=== PATIENT | female | born 1960 | race Caucasian/White ===

== ENCOUNTER → 2023-11-04 17:13 | Outpatient (REF) | payer BC, SELFPAY | LOC: WDC 17:13 | PROVIDERS: ATTENDING PHYSICIAN Advanced Practice Midwife; FAMILY PHYSICIAN Nurse Practitioner Primary Care | DX: Z12.31 Encounter for screening mammogram for malignant neoplasm of breast (principal) | CPT/HCPCS: 77063; 77067 ==

== ENCOUNTER 2023-11-15 08:24 | Outpatient (RCR) | payer BC, SELFPAY ==
[2023-11-15] VITALS (11 sets, daily range): BP systolic 108–124; BP diastolic 57–71
[2023-11-15] MEDS: NSS 500 IV (09:00)
[2023-11-15] MEDS: TYLENOL 650 MG PO (09:09)
[2023-11-15] MEDS: SOLU-MEDROL PF 51.6000000000000014 MG IV (09:10)
[2023-11-15 09:33] LABS: % Basophils 0.4 % (0-2); % Eosinophils 2.9 % (0-6); % Immature Granulocytes 0.2 % (0-0.5); % Lymphocytes 29.5 % (20.5-51.1); % Monocytes 8.7 % (1.7-9.3); % Neutrophils 58.3 % (42.2-75.2); Absolute Eosinophils 0.1 10^3/uL (0-0.7); Absolute Lymphocytes 1.3 10^3/uL (1.2-3.4); Absolute Monocytes 0.4 10^3/uL (0.1-0.6); Absolute Neutrophils 2.6 10^3/uL (1.4-6.5); Hematocrit 34.5 % (37.0-47.0); Hemoglobin 11.8 g/dL (12.0-16.0); Mean Corp Hgb Conc. 34.2 g/dL (33.0-37.0); Mean Corpuscular Hgb 31.2 pg (27.0-31.0); Mean Corpuscular Volume 91.3 fL (81.0-99.0); Mean Platelet Volume 9.6 fL (7.4-10.4); Nucleated Red Blood Cells % 0 %; Platelet Count 270 10^3/uL (130-400); Red Blood Cell Count 3.78 10^6/uL (4.20-5.40); Red Cell Dist. Width 12.7 % (11.5-14.5); White Blood Cell Count 4.5 10^3/uL (4.8-10.8)
[2023-11-15] MEDS: BENADRYL 51 MG IV (09:37)
[2023-11-15] MEDS: OCREVUS 520 MG IV (10:00)
== END 2023-11-16 09:46 | disposition home or self-care (01) ==
LOC: OID 08:24
PROVIDERS: ATTENDING PHYSICIAN Psychiatry & Neurology Neurology; FAMILY PHYSICIAN Internal Medicine
DX: G35 Multiple sclerosis (principal)
CPT/HCPCS: 36415; 85025; 96361; 96367; 96413; 96415; J2350

== ENCOUNTER → 2023-11-19 06:32 | Day surgery (SDC) | payer BC, SELFPAY | LOC: GI 06:32 | PROVIDERS: ATTENDING PHYSICIAN Specialist; FAMILY PHYSICIAN Nurse Practitioner Primary Care | DX: K22.70 Barrett's esophagus without dysplasia (principal); K31.7 Polyp of stomach and duodenum; Z09 Encounter for follow-up examination after completed treatment for conditions other than malignant neoplasm | CPT/HCPCS: 43239; 88305 ==

== ENCOUNTER → 2023-12-27 10:57 | Outpatient (REF) | payer BC, SELFPAY ==
[2023-12-27 11:37] LABS: % Basophils 0.6 % (0-2); % Eosinophils 4.2 % (0-6); % Immature Granulocytes 0.2 % (0-0.5); % Lymphocytes 30.6 % (20.5-51.1); % Monocytes 8.8 % (1.7-9.3); % Neutrophils 55.6 % (42.2-75.2); Absolute Eosinophils 0.2 10^3/uL (0-0.7); Absolute Lymphocytes 1.5 10^3/uL (1.2-3.4); Absolute Monocytes 0.4 10^3/uL (0.1-0.6); Absolute Neutrophils 2.7 10^3/uL (1.4-6.5); Hematocrit 34.8 % (37.0-47.0); Hemoglobin 12.1 g/dL (12.0-16.0); Mean Corp Hgb Conc. 34.8 g/dL (33.0-37.0); Mean Corpuscular Hgb 31.5 pg (27.0-31.0); Mean Corpuscular Volume 90.6 fL (81.0-99.0); Mean Platelet Volume 9.6 fL (7.4-10.4); Nucleated Red Blood Cells % 0 %; Platelet Count 292 10^3/uL (130-400); Red Blood Cell Count 3.84 10^6/uL (4.20-5.40); Red Cell Dist. Width 12.7 % (11.5-14.5); White Blood Cell Count 4.8 10^3/uL (4.8-10.8)
[2023-12-27 12:08] LABS: ALT (SGPT) 16 U/L (0-35); AST (SGOT) 21 U/L (14-36); Albumin 4.4 g/dl (3.5-5.0); Alkaline Phosphatase 57 U/L (38-126); Blood Urea Nitrogen 17 mg/dl (7-17); Calcium 9.7 mg/dl (8.4-10.2); Carbon Dioxide 30 mmol/L (22-30); Chloride 99 mmol/L (98-107); Glucose 94 mg/dl (70-99); Potassium 4.2 mmol/L (3.5-5.1); Sodium 136 mmol/L (135-145); Total Bilirubin 0.5 mg/dl (0.2-1.3); Total Protein 6.8 g/dl (6.3-8.2); eGFR > 60.00
[2023-12-27 12:14] LABS: IgG 572 mg/dl (700-1600)
[2023-12-27 12:19] LABS: Vitamin D, 25-OH*** 109 ng/mL (30-80)
[2023-12-27 12:33] LABS: TSH Reflex To Free T4 1.12 uIU/ml (0.47-4.68)
[2023-12-27 12:52] LABS: Vitamin B12 350 pg/ml (239-931)
== END ==
LOC: REG 10:57
PROVIDERS: ATTENDING PHYSICIAN Psychiatry & Neurology Neurology
DX: G35 Multiple sclerosis (principal)
CPT/HCPCS: 36415; 80053; 82306; 82607; 82784; 84443; 85025

== ENCOUNTER → 2024-01-10 17:41 | Outpatient (REF) | payer BC, SELFPAY | LOC: MRI 3T 17:41 | PROVIDERS: ATTENDING PHYSICIAN Psychiatry & Neurology Neurology; FAMILY PHYSICIAN Nurse Practitioner Primary Care | DX: G35 Multiple sclerosis (principal) | CPT/HCPCS: 72157; A9575 ==

== ENCOUNTER → 2024-04-06 11:30 | Outpatient (REF) | payer BC, SELFPAY ==
[2024-04-06 13:04] LABS: ALT (SGPT) 22 U/L (0-35); AST (SGOT) 25 U/L (14-36); Albumin 4.5 g/dl (3.5-5.0); Alkaline Phosphatase 59 U/L (38-126); Blood Urea Nitrogen 15 mg/dl (7-17); Calcium 9.7 mg/dl (8.4-10.2); Carbon Dioxide 30 mmol/L (22-30); Chloride 102 mmol/L (98-107); Glucose 92 mg/dl (70-99); HDL Cholesterol 79 mg/dl; Iron 134 ug/dl (37-170); LDL Cholesterol, Calculated 178 mg/dl; Potassium 4.3 mmol/L (3.5-5.1); Sodium 137 mmol/L (135-145); Total Bilirubin 0.5 mg/dl (0.2-1.3); Total Cholesterol 271 mg/dl (50-199); Total Protein 6.7 g/dl (6.3-8.2); Triglyceride 74 mg/dl (10-149); Very Low Density Lipoprotein 14 mg/dl (0-30); eGFR > 60.00
[2024-04-06 13:13] LABS: Percent Saturation 36 % (20-50); Total Iron Binding Capacity 365 ug/dl (265-497)
[2024-04-06 13:19] LABS: Vitamin D, 25-OH*** 101 ng/mL (30-80)
[2024-04-06 13:32] LABS: TSH 0.23 uIU/ml (0.47-4.68)
[2024-04-06 13:35] LABS: IgG 597 mg/dl (700-1600)
[2024-04-06 13:36] LABS: Ferritin 31.7 ng/ml (11.1-264.0)
[2024-04-06 13:52] LABS: Vitamin B12 916 pg/ml (239-931)
[2024-04-06 14:04] LABS: CRP, Highly Sensitive < 0.34 mg/L
[2024-04-06 14:47] LABS: Rheumatoid Agglutinin Less Than 10 IU (<10 IU)
[2024-04-08 03:01] LABS: ANA, IgG Reflex to HEp-2 None Detected (None Detected)
== END ==
LOC: REG 11:30
PROVIDERS: ATTENDING PHYSICIAN Psychiatry & Neurology Neurology; FAMILY PHYSICIAN Nurse Practitioner Primary Care; OTHER PHYSICIAN Psychiatry & Neurology Neurology
DX: E78.2 Mixed hyperlipidemia (principal); M85.89 Other specified disorders of bone density and structure, multiple sites; E55.9 Vitamin D deficiency, unspecified; Z79.899 Other long term (current) drug therapy; M25.50 Pain in unspecified joint; E53.8 Deficiency of other specified B group vitamins; E03.8 Other specified hypothyroidism; G35 Multiple sclerosis
CPT/HCPCS: 36415; 80053; 80061; 82306; 82607; 82728; 82784; 83540; 83550; 83735; 84439; 84443; 86038; 86141; 86430

== ENCOUNTER → 2024-04-26 15:29 | Outpatient (REF) | payer BC, SELFPAY | LOC: MRI 3T 15:29 | PROVIDERS: ATTENDING PHYSICIAN Psychiatry & Neurology Neurology; FAMILY PHYSICIAN Nurse Practitioner Primary Care | DX: G35 Multiple sclerosis (principal) | CPT/HCPCS: 70551; 72141 ==

== ENCOUNTER 2024-05-03 08:22 | Outpatient (RCR) | payer BC, SELFPAY ==
[2024-05-03] VITALS (12 sets, daily range): BP systolic 97–125; BP diastolic 44–83
[2024-05-03 09:10] LABS: % Basophils 0.2 % (0-2); % Eosinophils 2.8 % (0-6); % Lymphocytes 23.1 % (20.5-51.1); % Monocytes 8.2 % (1.7-9.3); % Neutrophils 65.7 % (42.2-75.2); Absolute Eosinophils 0.1 10^3/uL (0-0.7); Absolute Lymphocytes 1.2 10^3/uL (1.2-3.4); Absolute Monocytes 0.4 10^3/uL (0.1-0.6); Absolute Neutrophils 3.3 10^3/uL (1.4-6.5); Hematocrit 36.1 % (37.0-47.0); Hemoglobin 12.2 g/dL (12.0-16.0); Mean Corp Hgb Conc. 33.8 g/dL (33.0-37.0); Mean Corpuscular Hgb 31.4 pg (27.0-31.0); Mean Corpuscular Volume 92.8 fL (81.0-99.0); Mean Platelet Volume 9.4 fL (7.4-10.4); Platelet Count 240 10^3/uL (130-400); Red Blood Cell Count 3.89 10^6/uL (4.20-5.40); Red Cell Dist. Width 12.6 % (11.5-14.5)
[2024-05-03] MEDS: NSS 500 IV (09:22)
[2024-05-03] MEDS: SOLU-MEDROL PF 51.6 MG IV (09:23)
[2024-05-03] MEDS: TYLENOL 650 MG PO (09:24)
[2024-05-03] MEDS: BENADRYL 51 MG IV (09:50)
[2024-05-03] MEDS: OCREVUS 520 MG IV (10:21)
== END 2024-05-13 23:59 | disposition home or self-care (01) ==
LOC: OID 08:22
PROVIDERS: ATTENDING PHYSICIAN Psychiatry & Neurology Neurology; FAMILY PHYSICIAN Internal Medicine; REFERRING PHYSICIAN Psychiatry & Neurology Neurology
DX: G35 Multiple sclerosis (principal)
CPT/HCPCS: 36415; 85025; 96361; 96367; 96413; 96415; J2350

== ENCOUNTER → 2024-06-08 09:31 | Outpatient (REF) | payer BC, SELFPAY ==
[2024-06-08 10:24] LABS: Urine Albumin Trace (Neg - Trace); Urine Bilirubin Negative (Negative); Urine Character Slightly Cloudy (Clear); Urine Color Straw; Urine Glucose Negative (Negative); Urine Ketone Negative (Negative); Urine Leukocyte 2+ (Negative); Urine Nitrite Positive (Negative); Urine Occult Blood 1+ (Negative); Urine Specific Gravity 1.015 (<1.030); Urine Urobilinogen Negative (Neg - 1+)
[2024-06-08 10:33] LABS: Urine Mucus Few
[2024-06-08 10:34] LABS: Urine Bacteria Many (Negative); Urine White Cell 50-60 /HPF (0-5)
== END ==
LOC: REG 09:31
PROVIDERS: ATTENDING PHYSICIAN Urology; FAMILY PHYSICIAN Nurse Practitioner Primary Care
DX: N31.9 Neuromuscular dysfunction of bladder, unspecified (principal); N39.0 Urinary tract infection, site not specified; R27.8 Other lack of coordination; R33.9 Retention of urine, unspecified
CPT/HCPCS: 81003; 81015; 87086; 87088; 87186

== ENCOUNTER → 2024-07-12 10:24 | Outpatient (REF) | payer BC, SELFPAY ==
[2024-07-12 12:04] LABS: HDL Cholesterol 97 mg/dl; LDL Cholesterol, Calculated 65 mg/dl; Total Cholesterol 173 mg/dl (50-199); Triglyceride 57 mg/dl (10-149); Very Low Density Lipoprotein 11 mg/dl (0-30)
[2024-07-12 12:14] LABS: Free T4 1.22 ng/dl (0.78-2.19)
[2024-07-12 12:28] LABS: TSH 0.44 uIU/ml (0.47-4.68)
== END ==
LOC: REG 10:24
PROVIDERS: ATTENDING PHYSICIAN Nurse Practitioner Primary Care
DX: E03.8 Other specified hypothyroidism (principal); E78.2 Mixed hyperlipidemia; Z79.899 Other long term (current) drug therapy
CPT/HCPCS: 36415; 80061; 84439; 84443

== ENCOUNTER → 2024-08-18 12:43 | Outpatient (REF) | payer BC, SELFPAY ==
[2024-08-18 21:34] LABS: Urine Albumin Trace (Neg - Trace); Urine Bilirubin Negative (Negative); Urine Character Clear (Clear); Urine Color Straw; Urine Glucose Negative (Negative); Urine Ketone Negative (Negative); Urine Leukocyte 2+ (Negative); Urine Nitrite Negative (Negative); Urine Occult Blood Negative (Negative); Urine Specific Gravity 1.005 (<1.030); Urine Urobilinogen Negative (Neg - 1+)
[2024-08-18 21:41] LABS: Urine Bacteria Many (Negative); Urine Red Blood Cell 0-2 /HPF (0-2); Urine White Cell >100 /HPF (0-5)
== END ==
LOC: REG 12:43
PROVIDERS: ATTENDING PHYSICIAN Urology; FAMILY PHYSICIAN Nurse Practitioner Primary Care
DX: N31.9 Neuromuscular dysfunction of bladder, unspecified (principal); R27.8 Other lack of coordination; R33.9 Retention of urine, unspecified
CPT/HCPCS: 36415; 81003; 81015; 87077; 87086; 87186

== ENCOUNTER → 2024-09-27 12:37 | Outpatient (REF) | payer MEDICARE, SELFPAY | LOC: HWRAD 12:37 | PROVIDERS: ATTENDING PHYSICIAN Urology; FAMILY PHYSICIAN Nurse Practitioner Primary Care; REFERRING PHYSICIAN Psychiatry & Neurology Neurology | DX: N31.9 Neuromuscular dysfunction of bladder, unspecified (principal) | CPT/HCPCS: 76770 ==

== ENCOUNTER → 2024-10-04 11:28 | Outpatient (REF) | payer MEDICARE, SELFPAY ==
[2024-10-04 12:06] LABS: % Basophils 0.7 % (0-2); % Eosinophils 2.1 % (0-6); % Lymphocytes 33.9 % (20.5-51.1); % Monocytes 7.5 % (1.7-9.3); % Neutrophils 55.8 % (42.2-75.2); Absolute Eosinophils 0.1 10^3/uL (0-0.7); Absolute Lymphocytes 1.5 10^3/uL (1.2-3.4); Absolute Monocytes 0.3 10^3/uL (0.1-0.6); Absolute Neutrophils 2.4 10^3/uL (1.4-6.5); Hematocrit 36.7 % (37.0-47.0); Hemoglobin 12.3 g/dL (12.0-16.0); Mean Corp Hgb Conc. 33.5 g/dL (33.0-37.0); Mean Corpuscular Hgb 30.8 pg (27.0-31.0); Mean Corpuscular Volume 91.8 fL (81.0-99.0); Mean Platelet Volume 9.9 fL (7.4-10.4); Nucleated Red Blood Cells % 0 %; Platelet Count 254 10^3/uL (130-400); Red Cell Dist. Width 12.7 % (11.5-14.5); White Blood Cell Count 4.3 10^3/uL (4.8-10.8)
[2024-10-04 12:57] LABS: ALT (SGPT) 33 U/L (0-35); AST (SGOT) 32 U/L (14-36); Albumin 4.8 g/dl (3.5-5.0); Alkaline Phosphatase 57 U/L (38-126); Blood Urea Nitrogen 14 mg/dl (7-17); Calcium 9.4 mg/dl (8.4-10.2); Carbon Dioxide 30 mmol/L (22-30); Chloride 100 mmol/L (98-107); Glucose 95 mg/dl (70-99); Potassium 4.2 mmol/L (3.5-5.1); Sodium 137 mmol/L (135-145); Total Bilirubin 0.5 mg/dl (0.2-1.3); Total Protein 6.8 g/dl (6.3-8.2); eGFR > 60.00
[2024-10-04 15:08] LABS: Free T4 1.31 ng/dl (0.78-2.19); Vitamin D, 25-OH*** 103 ng/mL (30-80)
[2024-10-04 15:21] LABS: TSH 1.07 uIU/ml (0.47-4.68)
[2024-10-05 02:32] LABS: Hepatitis B Surface Antigen Negative (Negative)
[2024-10-05 02:49] LABS: Hepatitis C Antibody Negative (Negative)
[2024-10-05 03:20] LABS: IgG 616 mg/dl (700-1600)
[2024-10-05 03:47] LABS: IgA 96 mg/dl (70-400); IgM 39 mg/dl (40-230)
[2024-10-05 07:13] LABS: Hepatitis B Surface Antibody Indeterminate
[2024-10-05 19:12] LABS: Hepatitis B Core Ab, IgM Negative (Negative)
[2024-10-06 15:18] LABS: Quantiferon Mitogen minus NIL 9.96 IU/mL; Quantiferon NIL 0.04 IU/mL; Quantiferon Plus TB2 minus NIL 0.07 IU/mL (<=0.34); Quantiferon TB Gold Plus Negative (Negative)
== END ==
LOC: REG 11:28
PROVIDERS: ATTENDING PHYSICIAN Psychiatry & Neurology Neurology; FAMILY PHYSICIAN Nurse Practitioner Primary Care
DX: E03.8 Other specified hypothyroidism (principal); Z51.81 Encounter for therapeutic drug level monitoring; E55.9 Vitamin D deficiency, unspecified
CPT/HCPCS: 36415; 80053; 82306; 82784; 84439; 84443; 85025; 86480; 86705; 86706; 86803; 87340

== ENCOUNTER → 2024-10-25 13:42 | Outpatient (REF) | payer MEDICARE, SELFPAY ==
[2024-10-26 13:04] LABS: Urine Albumin 1+ (Neg - Trace); Urine Bilirubin Negative (Negative); Urine Character Slightly Cloudy (Clear); Urine Color Yellow; Urine Glucose Negative (Negative); Urine Ketone Negative (Negative); Urine Leukocyte 3+ (Negative); Urine Nitrite Negative (Negative); Urine Occult Blood 2+ (Negative); Urine Urobilinogen Negative (Neg - 1+)
[2024-10-26 13:48] LABS: Urine White Cell >100 /HPF (0-5)
== END ==
LOC: CLAB 13:42
PROVIDERS: ATTENDING PHYSICIAN Urology
DX: R39.9 Unspecified symptoms and signs involving the genitourinary system (principal)
CPT/HCPCS: 81003; 81015; 87077; 87086

== ENCOUNTER → 2024-12-20 10:49 | Outpatient (REF) | payer MEDICARE, SELFPAY | LOC: WDC 10:49 | PROVIDERS: ATTENDING PHYSICIAN Obstetrics & Gynecology; FAMILY PHYSICIAN Nurse Practitioner Primary Care | DX: Z12.31 Encounter for screening mammogram for malignant neoplasm of breast (principal) | CPT/HCPCS: 77063; 77067 ==

== ENCOUNTER → 2025-05-09 10:01 | Outpatient (REF) | payer MEDICARE, SELFPAY ==
[2025-05-09 11:40] LABS: Hematocrit 34.9 % (37.0-47.0); Hemoglobin 11.7 g/dL (12.0-16.0); Mean Corp Hgb Conc. 33.5 g/dL (33.0-37.0); Mean Corpuscular Volume 93.6 fL (81.0-99.0); Nucleated Red Blood Cells % 0 %; Platelet Count 263 10^3/uL (130-400); Red Cell Dist. Width 12.7 % (11.5-14.5)
[2025-05-09 12:48] LABS: HDL Cholesterol 88 mg/dl; Iron 107 ug/dl (37-170); LDL Cholesterol, Calculated 70 mg/dl; Magnesium 2.0 mg/dl (1.6-2.3); Very Low Density Lipoprotein 12 mg/dl (0-30)
[2025-05-09 12:59] LABS: Total Iron Binding Capacity 355 ug/dl (265-497)
[2025-05-09 13:18] LABS: TSH 0.87 uIU/ml (0.47-4.68)
[2025-05-09 13:22] LABS: Ferritin 41.2 ng/ml (11.1-264.0)
[2025-05-09 13:54] LABS: Folate 12.2 ng/ml (2.76-20)
[2025-05-09 14:52] LABS: Vitamin B12 999 pg/ml (239-931)
== END ==
LOC: REG 10:01
PROVIDERS: ATTENDING PHYSICIAN Nurse Practitioner Primary Care
DX: E78.2 Mixed hyperlipidemia (principal); E03.8 Other specified hypothyroidism; G35 Multiple sclerosis; Z79.899 Other long term (current) drug therapy; D51.9 Vitamin B12 deficiency anemia, unspecified
CPT/HCPCS: 36415; 80061; 82607; 82728; 82746; 83540; 83550; 83735; 84439; 84443; 85025

== ENCOUNTER → 2025-07-06 10:39 | Outpatient (REF) | payer MEDICARE, SELFPAY | LOC: RAD 10:39 | PROVIDERS: ATTENDING PHYSICIAN Nurse Practitioner Primary Care | DX: M85.89 Other specified disorders of bone density and structure, multiple sites (principal) | CPT/HCPCS: 77080 ==

== ENCOUNTER → 2025-07-13 12:12 | Outpatient (REF) | payer MEDICARE, SELFPAY ==
[2025-07-13 14:25] LABS: Urine Character Cloudy (Clear)
[2025-07-13 15:47] LABS: Urine White Cell >100 /HPF (0-5)
== END ==
LOC: REG 12:12
PROVIDERS: ATTENDING PHYSICIAN Urology; FAMILY PHYSICIAN Nurse Practitioner Primary Care
DX: R39.9 Unspecified symptoms and signs involving the genitourinary system (principal)
CPT/HCPCS: 81003; 81015; 87077; 87086; 87186